=== PATIENT | female | born 1985 | race Caucasian/White ===

== ENCOUNTER 2016-09-18 13:19 | Emergency (ER) | payer OTHER ==
[~2016-09-18 13:19] MED LIST: PRENATAL PO; TYL500 PO; [UNRECOGNIZED DRUG - OTHER] PO
[2016-09-18 13:56] VITALS: BP 139/81
[2016-09-18 16:05] LABS: CARBON DIOXIDE 25.5 mmol/L (21-32); CHLORIDE SERUM 103 mmol/L (98-107); CREATININE SERUM 0.6 mg/dL (0.6-1.0); GFR1 > 60 mL/min; GLUCOSE SERUM 120 mg/dL (74-106); POTASSIUM SERUM 3.9 mmol/L (3.5-5.1); SODIUM SERUM 140 mmol/L (136-145)
[2016-09-18 16:14] LABS: microscopic required? YES; urine erythrocyte 1+ (NEGATIVE)
== END 2016-09-18 17:50 | disposition home or self-care (01) ==
LOC: ED 13:19
PROVIDERS: Emergency Medicine
DX: M54.9 Dorsalgia, unspecified (principal); R03.0 Elevated blood-pressure reading, without diagnosis of hypertension; E11.9 Type 2 diabetes mellitus without complications; Z90.49 Acquired absence of other specified parts of digestive tract; Z88.5 Allergy status to narcotic agent; Z79.84 Long term (current) use of oral hypoglycemic drugs; Z87.442 Personal history of urinary calculi
CPT/HCPCS: 36415; J1885; Q0092

== ENCOUNTER 2019-09-05 13:46 | Emergency (ER) | payer OTHER ==
[~2019-09-05] VITALS: Ht 170.2 cm; Wt 104.8 kg
[2019-09-05 14:05] VITALS: Ht 170.2 cm; Wt 104.8 kg
[2019-09-05 14:58] VITALS: BP 117/78
== END 2019-09-05 14:58 | disposition home or self-care (01) ==
LOC: ED 13:46
DX: K02.9 Dental caries, unspecified (principal); E11.9 Type 2 diabetes mellitus without complications; Z90.49 Acquired absence of other specified parts of digestive tract; Z88.5 Allergy status to narcotic agent
CPT/HCPCS: J1885